=== PATIENT | male | born 1995 | race Caucasian/White ===

== ENCOUNTER 2022-01-29 18:12 | Emergency (ER) | payer OTHER, SELFPAY ==
--- NOTE | ~2022-01-29 | XR_ITS ---
EXAM: XR ankle LT min 3V DATE: 01/29/2022 18:34 HISTORY: 4WHEELER WRECK,LAT MALLEOLUS PAIN . COMPARISON: None available. FINDINGS: Normal mineralization. Oblique fracture of the distal fibula extending to the joint line w ith minimal lateral angulation. No lytic or blastic lesion. Joint spaces are maintained. No erosion o r periosteal change. Lateral soft tissue swelling. IMPRESSION: Minimally angulated oblique fracture of the distal left fibula (Morris B type fracture). Reviewed, dictated and finalized at location K. IMPRESSION: Minimally angulated oblique fracture of the distal left fibula (Web er B type fracture).
[2022-01-29 18:25] VITALS: BP 125/73; PULSE 96; RESP 18; TEMP 36.7; O2SAT 100
--- NOTE | 2022-01-29 18:43 | ED.LOWEXIN ---
HPI - Extremity Injury (Lower) General Chief Complaint: Extremity Injury, Lower Stated Complaint: left ankle injury Time Seen by Provider: 01/29/22 18:23 Source: patient and RN notes reviewed History of Present Illness HPI Narrative: Patient is a 26-year-old male who presents the urgent care with complaints of left ankle pain and swelling after falling off his 4 amador and it landed on the left ankle. Patient states that he took Tylenol/ibuprofen and use ice prior to arrival. States that it happened just approximately 1 hour ago. No other acute complaints or injuries from the fall. Patient denies of any loss of consciousness or hitting his head. No acute distress noted. Patient aware of the plan of care. Some parts of this dictation were generated by voice recognition software and may contain typographical and/or grammatical inaccuracies. Related Data Allergies Allergy/AdvReac Type Severity Reaction Status Date / Time amoxicillin [From Amoxil] AdvReac Rash Verified 01/29/22 18:39 Review of Systems Review of Systems: CONSTITUTIONAL: Denies fever, chills, or sweats. EYES: Denies visual changes, redness, or discharge. ENT: Denies rhinorrhea, congestion, sore throat, or otalgia. CARDIOVASCULAR: Denies chest pain, palpitations, or edema. RESPIRATORY: Denies cough or dyspnea. GASTROINTESTINAL: Denies abdominal pain, nausea, vomiting, or diarrhea. GENITOURINARY: Denies dysuria or hematuria. SKIN: Denies rash or itching. MUSCULOSKELETAL: Reports of left ankle pain and swelling NEUROLOGIC: Denies headache, numbness, or weakness. All other systems reviewed are negative, except as documented in HPI. PMFSH Comments At the time of my signature, I reviewed and agree with the nursing past medical, surgical, social, and family history. There is no relevant family history pertinent to the patient complaint. Exam Narrative: GENERAL: This is a well-nourished, well-developed patient, in no apparent distress. HEAD: normocephalic, atraumatic. EYES: PERRL. Sclera clear/white. Vision is grossly intact. EARS: External ears normal NOSE: External nose normal with no obvious nasal discharge, nares without redness, no rhinorrhea. THROAT: Mucous membranes moist NECK: Neck supple CARDIOVASCULAR: Regular rate and rhythm without murmurs, gallops, or rubs. RESPIRATORY: Clear to auscultation. Breath sounds equal bilaterally. No wheezes, rales, or rhonchi. SKIN: Skin abrasion noted to the lateral aspect of the left malleolus NEURO: awake, alert, and oriented to person, place and time. There were no obvious focal neurologic abnormalities. EXTREMITIES: Mild to moderate edema noted to the left lateral malleolus/distal fibula with moderate tenderness. Range of motion limited due to pain. Positive strong left pedal pulse with capillary refill less than 2 seconds. Course Course Level of Care: Express Care Visit Vital Signs Vital signs: Vital Signs Temperature 98.1 F 01/29/22 18:25 Pulse Rate 96 01/29/22 18:25 Respiratory Rate 18 01/29/22 18:25 Blood Pressure 125/73 01/29/22 18:25 Pulse Oximetry 100 01/29/22 18:25 Oxygen Delivery Room Air 01/29/22 18:25 Temperature 98.1 F 01/29/22 18:25 Pulse Rate 96 01/29/22 18:25 Respiratory Rate 18 01/29/22 18:25 Blood Pressure 125/73 01/29/22 18:25 Pulse Oximetry 100 01/29/22 18:25 Oxygen Delivery Room Air 01/29/22 18:25 Reviewed Procedures Orthopedic Splinting/Casting Injury #1: Side: left OCL: posterior Additional Comments: Posterior short leg applied to the left lower extremity. Neurovascular exam within normal limits pre and postprocedure. The use of crutches demonstrated by the patient with the chemistry technician. OCL applied to chemistry technician. MDM - Extremity Injury (Lower) MDM Narrative Medical decision making narrative: Reviewed x-ray results with the patient. Aware that x-ray is positive for a fracture of the left fibula. Advised patient
== END 2022-01-29 19:18 | disposition home or self-care (01) ==
PROVIDERS: Emergency Provider Nurse Practitioner Family; PCP Internal Medicine
DX: S82.832A Other fracture of upper and lower end of left fibula, initial encounter for closed fracture (principal); V86.55XA Driver of 3- or 4- wheeled all-terrain vehicle (ATV) injured in nontraffic accident, initial encounter
CPT/HCPCS: 29515; 73610; 99214; G0463

== ENCOUNTER 2022-02-03 13:32 | Outpatient (CLI) | payer OTHER, SELFPAY ==
--- NOTE | ~2022-02-03 | XR_ITS ---
XR ankle LT min 3V DATE: 02/03/2022 13:44 INDICATION: Left ankle pain following injury TECHNIQUE: 4 views COMPARISON: 01/29/2022 left ankle FINDINGS: Posterior splint. No significant change in position or alignment at minimally posteriorly displaced lateral malleolar f racture. The medial and posterior malleoli are intact. The ankle mortise is preserved. IMPRESSION: No change, lateral malleolar fracture Reviewed, dictated and finalized at location A.
== END 2022-02-03 13:33 | disposition home or self-care (01) ==
PROVIDERS: PCP Internal Medicine; Visit Provider Orthopaedic Surgery
DX: M25.572 Pain in left ankle and joints of left foot (principal); S82.62XA Displaced fracture of lateral malleolus of left fibula, initial encounter for closed fracture
CPT/HCPCS: 73610

== ENCOUNTER 2023-09-29 12:51 | Emergency (ER) | payer SELFPAY ==
[2023-09-29 12:59] VITALS: BP 111/67; PULSE 72; RESP 20; TEMP 36.5; O2SAT 100
--- NOTE | 2023-09-29 13:33 | ED.EAR ---
HPI - Ear Problem General Chief complaint: Ear Stated complaint: Left Ear Problem Time Seen by Provider: 09/29/23 13:33 Source: patient Mode of arrival: ambulatory Limitations: no limitations History of Present Illness HPI Narrative: 28-year-old male presented for complaint of decreased hearing, left ear. He states this started after he pushed ear wax into the ear. He states last night after hot shower he applied hydrogen peroxide, and then used Q-tip to remove the earwax, but the wax was pressed into the eardrum. Endorses hx tinnitus and ruptured TM in the left ear. States he does not clean the ear often due to the history. MD Complaint: ear pain Related Data Home Medications Medication Instructions Recorded Confirmed No Home Medications 09/29/23 09/29/23 Allergies Allergy/AdvReac Type Severity Reaction Status Date / Time amoxicillin [From Amoxil] Allergy Intermediate Rash Verified 09/29/23 13:11 Review of Systems Review of Systems: CONSTITUTIONAL: Denies malaise, chills, or fever. EYES: Denies visual changes, redness, or discharge. ENT: Denies rhinorrhea, congestion, sinus pain, and sore throat. Reports decreased hearing CARDIOVASCULAR: Denies chest pain, palpitations, or edema. RESPIRATORY: Denies cough or dyspnea. GASTROINTESTINAL: Denies abdominal pain, nausea, vomiting, diarrhea SKIN: Denies rash or itching. MUSCULOSKELETAL: Denies myalgia. NEUROLOGIC: Denies headache. All systems reviewed & are unremarkable except as noted in HPI and below PMFSH Past Medical History Medical History Anxiety Depression Wears glasses Surgical History Surgical History No history of previous surgery Family History Family History Other Cerebrovascular accident Depression Diabetes mellitus Hypertension Kidney disorder Neuropathy Skin cancer Social History Social History Smoking status: Never smoker Alcohol intake: never Substance use: current Substance use type: marijuana Living arrangements: with family Occupation/Education: student Gender identity (if verbalized by the patient): Male Comments At time of signature, agree with nursing past medical, surgical, social and family history. There is no relevant family history pertinent to the presenting complaint Exam Narrative: GENERAL: Well-appearing EYES: PERRLA, conjunctivae clear ENT: Nares clear. Mucous membranes moist. Rigth TM pearly schulz with dull light reflex; Left cerumen impaction, TM not visualized. no tragal tenderness. Oropharynx not erythematous without lesions. CHEST: Clear to auscultation, breath sounds equal. HEART: Regular rate and rhythm. No murmur heard. SKIN: Warm, dry, no rash. NEURO: Alert and oriented x3. PSYCH: Normal mood and affect Course Course Emergency Course: Patient is aware of diagnosis, understands and agrees to treatment plan. Anticipatory guidance given. Patient agrees to follow-up as directed and is aware of reasons to seek care at the emergency department. Portions of this record may have been created with voice recognition software Level of Care: Express Care Visit Vital Signs Vital signs: Vital Signs Temperature 97.7 F 09/29/23 12:59 Pulse Rate 72 09/29/23 12:59 Respiratory Rate 20 09/29/23 12:59 Blood Pressure 111/67 09/29/23 12:59 Pulse Oximetry 100 09/29/23 12:59 Oxygen Delivery Room Air 09/29/23 12:59 Temperature 97.7 F 09/29/23 12:59 Pulse Rate 72 09/29/23 12:59 Respiratory Rate 20 09/29/23 12:59 Blood Pressure 111/67 09/29/23 12:59 Pulse Oximetry 100 09/29/23 12:59 Oxygen Delivery Room Air 09/29/23 12:59 Reviewed Procedures Ear Wax Removal Left Ear: Ear Wax Removal Date: 09/29/23 Cerumenol
== END 2023-09-29 13:55 | disposition home or self-care (01) ==
PROVIDERS: Emergency Provider Nurse Practitioner Family
DX: H61.22 Impacted cerumen, left ear (principal)
CPT/HCPCS: 69210; 99212; G0463